=== PATIENT | female | born 1965 | race Two or more races ===

== ENCOUNTER → 2020-04-12 | Outpatient (CLI) | payer OTHER ==
[~2020-04-12] VITALS: Ht 165.1 cm; Wt 69.4 kg
[~2020-04-12] MED LIST: PROAIR HFA8.5 GM; ZYRTEC10 M3
== END | disposition home or self-care (01) ==
LOC: OFIC 805 04-07 10:00
PROVIDERS: ATTEND Otolaryngology Otology & Neurotology
DX: H81.03 Meniere's disease, bilateral (principal)

== ENCOUNTER → 2020-07-19 | Outpatient (CLI) | payer OTHER | END | disposition home or self-care (01) | LOC: OFIC 805 07-05 10:00 | PROVIDERS: ATTEND Otolaryngology Otology & Neurotology | DX: H81.03 Meniere's disease, bilateral (principal); J30.89 Other allergic rhinitis ==

== ENCOUNTER 2020-11-01 13:28 | Outpatient (CLI) | payer OTHER | END 2020-11-01 14:28 | disposition home or self-care (01) | LOC: OFIC 805 13:28 | PROVIDERS: ATTEND Otolaryngology Otology & Neurotology | DX: H81.03 Meniere's disease, bilateral (principal); J30.89 Other allergic rhinitis ==